=== PATIENT | female | born 1995 | race Caucasian/White ===

== ENCOUNTER 2020-03-09 23:58 | Emergency (ER) | payer OTHER ==
[~2020-03-09] VITALS: Ht 157.5 cm; Wt 90.7 kg
[2020-03-10] MEDS ORDERED: ULTRAM50 MG PO (01:02)
[2020-03-10 01:19] VITALS: BP 116/66
--- OUTSIDE RECORDS SUMMARY | 2020-03-10 02:04 | XMS REPORT | Summary of Care ---
Author Author [facility] Organization [facility] Address Unknown Phone Unavailable Encounter BEV Quigley(JONN) [id number] Date(s): 01/05/17 - 01/05/17 [facility] [address] [place] [address]- [phone] Discharge Diagnosis: Depression Discharge Disposition: Home or Self Care Attending Physician: Henrique Cerda MD Vital Signs 1 2 3 Most recent to oldest [Reference Range]: 165.1 cm (01/05/17 4:23 PM) Height 98.2 DegF (01/05/17 10:31 PM) 98.1 DegF (01/05/17 8:35 PM) 98.0 DegF (01/05/17 4:23 PM) Temperature Oral [96.4-99.1 DegF] 102/80 mmHg (01/05/17 10:31 PM) 100/62 mmHg (01/05/17 8:35 PM) 124/79 mmHg (01/05/17 4:23 PM) Blood Pressure [90-140/60-90 mmHg] 20 BRMIN (01/05/17 10:31 PM) 20 BRMIN (01/05/17 8:35 PM) 22 BRMIN *HI* (01/05/17 4:23 PM) Respiratory Rate [14-20 BRMIN] 85 bpm (01/05/17 10:31 PM) 81 bpm (01/05/17 8:35 PM) 68 bpm (01/05/17 4:23 PM) Peripheral Pulse Rate [60-100 bpm] 59.091 kg (01/05/17 4:23 PM) Weight 21.68 m2 (01/05/17 4:23 PM) Body Mass Index Problem List Condition Effective Dates Status Health Status Informan t Bipolar disorder, Active unspecified(Confirme d) Allergies, Adverse Reactions, Alerts Substance Reaction Severity Status morphine Active Medications Tylenol 650 mg, Route: PO, Drug form: TAB, ONCE, Dosing Weight 59.091, kg, Priority: STA T, Start date: 01/05/17 21:22:00 CDT, Stop date: 01/05/17 21:22:00 CDT Start Date: 01/05/17 Stop Date: 01/05/17 Status: Completed Results ELECTROLYTES Most recent to 1 oldest [Reference Range]: Sodium Lvl [135-145 142 mEq/L mEq/L] (01/05/17 5:11 PM) Potassium Lvl 4.0 mEq/L [3.5-5.1 mEq/L] (01/05/17 5:11 PM) Chloride Lvl [95-109 108 mEq/L mEq/L] (01/05/17 5:11 PM) CO2 [24-32 mEq/L] 26 mEq/L (01/05/17 5:11 PM) AGAP [10.0-20.0 12.0 mEq/L mEq/L] (01/05/17 5:11 PM) CHEM PANEL Most recent to 1 oldest [Reference Range]: Creatinine Lvl 0.79 mg/dL [0.50-1.40 mg/dL] (01/05/17 5:11 PM) eGFR 109 mL/min/1.73m2 1 *NA* (01/05/17 5:11 PM) BUN [7-22 mg/dL] 11 mg/dL (01/05/17 5:11 PM) B/C Ratio [6-25] 14 (01/05/17 5:11 PM) Glucose Lvl [70-99 91 mg/dL mg/dL] (01/05/17 5:11 PM) Total Protein 7.6 g/dL [6.4-8.4 g/dL] (01/05/17 5:11 PM) Albumin Lvl [3.5-5.0 3.9 g/dL g/dL] (01/05/17 5:11 PM) Globulin [2.7-4.2 3.7 g/dL g/dL] (01/05/17 5:11 PM) A/G Ratio [0.7-1.6] 1.1 (01/05/17 5:11 PM) Calcium Lvl 9.2 mg/dL [8.5-10.5 mg/dL] (01/05/17 5:11 PM) ALT [0-65 unit/L] 23 unit/L (01/05/17 5:11 PM) AST [0-37 unit/L] 15 unit/L (01/05/17 5:11 PM) Alk Phos [39-136 79 unit/L unit/L] (01/05/17 5:11 PM) Bili Total [0.2-1.3 0.5 mg/dL mg/dL] (01/05/17 5:11 PM) Lipase Lvl [73-393 162 unit/L unit/L] (01/05/17 5:11 PM) 1Result Comment: The eGFR is calculated using the CKD-EPI formula. In most young, healthy individuals the eGFR will be >90 mL/min/1.73m2. The eGFR declines with age. An eGFR of 60-89 may be normal in some populations, particularly the elderly, for whom the CKD-EPI formula has not been extensively validated. Use of the eGFR is not recommended in the following populations: Individuals with unstable creatinine concentrations, including patients and those with serious co-morbid conditions. Patients with extremes in muscle mass or diet. The data above are obtained from the National Kidney Disease Education Program ( NKDEP) which additionally recommends that when the eGFR is used in patients with extremes of body mass index for purposes of drug dosing, the eGFR should be mul tiplied by the estimated BMI. CARDIAC ENZYMES Most recent to 1 oldest [Reference Range]: Total CK [12-191 52 unit/L unit/L] (01/05/17 5:11 PM) CK MB [0.5-3.6 0.6 ng/mL ng/mL] (01/05/17 5:11 PM) CK MB Index 1.2 [0.0-2.5] (01/05/17 5:11 PM) Troponin-I <0.02 ng/mL [0.00-0.40 ng/mL] (01/05/17 5:11 PM) DRUG SCREEN Most recent to 1 oldest [Reference Range]: U Amph Scr Negative [Negative] *NA* (01/05/17 6:04 PM) U Johana Scr Negative [Negative] *NA* (01/05/17 6:04 PM) U Benzodia Scr Negative [Negative] *NA* (01/05/17 6:04 PM) U Cocaine Scr Negative [Negative] *NA* (01/05/17 6:04 PM) U Opiate Scr Negative [Negative] *NA* (01/05/17 6:04 PM) U Phencyc Scr Negative [Negative] *NA* (01/05/17 6:04 PM) U Cannab Scr Positive [Negative] *ABN* (01/05/17 6:04 PM) UDS Note See Note (01/05/17 6:04 PM) TOXICOLOGY Most recent to 1 oldest [Reference Range]: Acetaminoph Lvl <2 ug/ml [10-20 ug/ml] *LOW* (01/05/17 5:11 PM) Salicylate Lvl <1.7 mg/dL [0.0-30.0 mg/dL] (01/05/17 5:11 PM) Etoh (%) <.003 % *NA* (01/05/17 5:11 PM) Ethanol Lvl <3 mg/dL *NA* (01/05/17 5:11 PM) ENDOCRINOLOGY Most recent to 1 oldest [Reference Range]: hCG Tot <1 mIU/mL *NA* (01/05/17 5:11 PM) HEMATOLOGY Most recent to 1 oldest [Reference Range]: WBC [3.7-10.4 K/CMM] 5.0 K/CMM (01/05/17 5:11 PM) RBC [4.20-5.40 4.62 M/CMM M/CMM] (01/05/17 5:11 PM) Hgb [12.0-16.0 g/dL] 12.8 g/dL (01/05/17 5:11 PM) Hct [36.0-48.0 %] 39.5 % (01/05/17 5:11 PM) MCV [80.0-98.0 fL] 85.6 fL (01/05/17 5:11 PM) MCH [27.0-31.0 pg] 27.7 pg (01/05/17 5:11 PM) MCHC [32.0-36.0 32.4 g/dL g/dL] (01/05/17 5:11 PM) RDW [11.5-14.5 %] 15.0 % *HI* (01/05/17 5:11 PM) Platelet [133-450 186 K/CMM K/CMM] (01/05/17 5:11 PM) MPV [7.4-10.4 fL] 9.9 fL (01/05/17 5:11 PM) Segs [45.0-75.0 %] 67.0 % (01/05/17 5:11 PM) Lymphocytes 23.5 % [20.0-40.0 %] (01/05/17 5:11 PM) Monocytes [2.0-12.0 7.4 % %] (01/05/17 5:11 PM) Eosinophils [0.0-4.0 1.7 % %] (01/05/17 5:11 PM) Basophils [0.0-1.0 0.4 % %] (01/05/17 5:11 PM) Segs-Bands # 3.3 K/CMM [1.5-8.1 K/CMM] (01/05/17 5:11 PM) Lymphocytes # 1.2 K/CMM [1.0-5.5 K/CMM] (01/05/17 5:11 PM) Monocytes # [0.0-0.8 0.4 K/CMM K/CMM] (01/05/17 5:11 PM) Eosinophils # 0.1 K/CMM [0.0-0.5 K/CMM] (01/05/17 5:11 PM) Immunizations No data available for this section Procedures No data available for this section Social History Social History Type Response Smoking Status Current some day smoker; Ex posure to Tobacco Smoke None; Cigarette Smoking Last 365 Days Yes; Reg Smoking Cessatio n Counseling Yes Assessment and Plan No data available for this section
--- OUTSIDE RECORDS SUMMARY | 2020-03-10 02:04 | XMS REPORT ---
Author Author Admin, Trista Sunflower Organization [facility] Address [address] [address] Phone Allergies, Adverse Reactions, Alerts Allergy Name Reaction Description Start Date Severity Status Pr ovider No Known Allergies Percy Sprague MD Conditions or Problems Problem Name Problem Code Onset Date Status Entry Date Provider Comment Standard Description Annotate PERSONALITY DISORDER, BORDERLINE Active 201 02/02/15 Pearl Sprague MD DEPRESSIVE DISORDER, MAJOR, RECURRENT EPISODE, MODERATE Active Pearl Sprague MD Major depressive dis order, recurrent episode, moderate degree PANIC DISORDER Active Pearl Sprague MD Panic disorder without agoraphobia PTSD Active Pearl Sprague MD Posttraumatic stress disorder Medication List Medication Instructions Start Date Stop Date Generic Name NDC Status Provider Patient Instruction ARIPIPRAZOLE 5 MG ORAL TABLET one By Mouth Every Morning ARIPIPRAZOLE 55296633002 Active Pearl Sprague MD Active SERTRALINE HCL 100 MG ORAL TABLET one By Mouth Every Day SERTRALINE HCL 13514555254 Active Pearl Sprague MD Active Vital Signs Date Name Value Unit Range Description blood pressure, diastolic 74 mm[Hg] BP chandler blood pressure, systolic 111 mm[Hg] BP sys pulse rate E&M 90 /min Heart rate weight E&M 178.60 [lb_av] Weight Measure d blood pressure, diastolic 86 mm[Hg] BP chandler blood pressure, systolic 119 mm[Hg] BP sys height E&M 62 [in_us] Bdy height pulse rate E&M 96 /min Heart rate weight E&M 178.60 [lb_av] Weight Measure d Diagnostic Results Date Name Value Unit Range Description Lab Report: CBC With Differential/Platel et, Comp. Metabolic Panel (14), ... - Hematology basophils as percent of blood leukocytes 0 % Not Estab. Lab Report: CBC With Differential/Platel et, Comp. Metabolic Panel (14), ... - Chemistry calcium, serum 9.4 mg/dL 8.7-10.2 Lab Report: CBC With Differential/Platel et, Comp. Metabolic Panel (14), ... - Hematology lymphocyte count, blood, automated 1.5 X10E3/UL 10*3/mm3 0.7-3.1 Lab Report: CBC With Differential/Platel et, Comp. Metabolic Panel (14), ... - Chemistry urea nitrogen, blood 9 mg/dL 6-20 Lab Report: CBC With Differential/Platel et, Comp. Metabolic Panel (14), ... - Hematology monocyte count, blood, automated 0.3 X10E3/UL 10*3/uL 0 .1-0.9 Lab Report: CBC With Differential/Platel et, Comp. Metabolic Panel (14), ... - Chemistry urea nitrogen/creatinine ratio, serum 11 9-23 immature granulocytes, percentage of total cells, bloo d 0 % Not Estab. Lab Report: CBC With Differential/Platel et, Comp. Metabolic Panel (14), ... - Genetics/fertility eGFR if 121 mL/min/1.73m2 >59 Lab Report: CBC With Differential/Platel et, Comp. Metabolic Panel (14), ... - Chemistry creatinine, serum 0.81 mg/dL 0.57-1.00 Lab Report: CBC With Differential/Platel et, Comp. Metabolic Panel (14), ... - Hematology mean corpuscular volume, RBC 85 fL 79-97 Lab Report: CBC With Differential/Platel et, Comp. Metabolic Panel (14), ... - Chemistry chloride, serum 102 mmol/L 96-106 Lab Report: CBC With Differential/Platel et, Comp. Metabolic Panel (14), ... - Hematology lymphocytes as percent of blood leukocytes 24 % Not Estab. Lab Report: CBC With Differential/Platel et, Comp. Metabolic Panel (14), ... - Chemistry triglyceride, serum, fasting 95 mg/dL 0-149 Lab Report: CBC With Differential/Platel et, Comp. Metabolic Panel (14), ... - Hematology erythrocyte (RBC) count 4.75 X10E6/UL 10*6/mm3 3.77-5.28 Lab Report: CBC With Differential/Platel et, Comp. Metabolic Panel (14), ... - Chemistry Estimated Glomerular Filtration Rate (calc) 105 mL/ min/1.73m2 >59 Lab Report: CBC With Differential/Platel et, Comp. Metabolic Panel (14), ... - Hematology platelet count 231 X10E3/UL 10*3/mm3 508-810 9934/11/15 red blood cell distribution width 13.6 % 12 .3-15.4 Lab Report: CBC With Differential/Platel et, Comp. Metabolic Panel (14), ... - Chemistry carbon dioxide, venous blood 22 mmol/L 18-29 protein, total, serum 7.0 g/dL 6.0-8.5 HDL cholesterol, serum 45 mg/dL >39 sodium, serum 138 mmol/L 134-144 Lab Report: CBC With Differential/Platel et, Comp. Metabolic Panel (14), ... - Hematology eosinophils as percent of blood leukocytes 5 % Not Estab. Lab Report: CBC With Differential/Platel et, Comp. Metabolic Panel (14), ... - Chemistry albumin/globulin ratio, serum 1.6 1.2-2. 2 alkaline phosphatase, serum 98 U/L 39-117 Absolute Neutrophils 4.1 X10E3/UL 10*3/uL 1.4-7.0 Lab Report: CBC With Differential/Platel et, Comp. Metabolic Panel (14), ... - Hematology basophil count, absolute 0.0 x10E3/uL 0.0-0.2 Lab Report: CBC With Differential/Platel et, Comp. Metabolic Panel (14), ... - Chemistry alanine aminotransferase (SGPT), serum 21 U/L 0-32 Lab Report: CBC With Differential/Platel et, Comp. Metabolic Panel (14), ... - Hematology Eosinophil Absolute Count 0.3 X10E3/UL 10*3/uL 0.0-0.4 Lab Report: CBC With Differential/Platel et, Comp. Metabolic Panel (14), ... - Chemistry LDL cholesterol, serum 98 mg/dL 0-99 Lab Report: CBC With Differential/Platel et, Comp. Metabolic Panel (14), ... - Hematology monocytes as percent of blood leukocytes 5 % Not Estab. mean corpuscular hemoglobin, RBC 28.4 pg 26. 6-33.0 Lab Report: CBC With Differential/Platel et, Comp. Metabolic Panel (14), ... - Chemistry cholesterol, serum 162 mg/dL 100-199 Lab Report: CBC With Differential/Platel et, Comp. Metabolic Panel (14), ... - Hematology mean corpuscular hemoglobin concentration, RBC 33.3 G/DL % 31.5-35.7 Lab Report: CBC With Differential/Platel et, Comp. Metabolic Panel (14), ... - Chemistry bilirubin, serum, total 0.3 mg/dL 0.0-1.2 Lab Report: CBC With Differential/Platel et, Comp. Metabolic Panel (14), ... - Hematology hemoglobin, blood 13.5 g/dL 11.1-15.9 neutrophils as percent of blood leukocytes 66 % Not Estab. leukocyte count, blood 6.3 X10E3/UL 10*3/mm3 3.4-10.8 hematocrit, blood 40.5 % 34.0-46.6 Lab Report: CBC With Differential/Platel et, Comp. Metabolic Panel (14), ... - Chemistry potassium, serum 4.7 mmol/L 3.5-5.2 blood glucose, random 87 mg/dL 65-99 globulin, serum 2.7 1.5-4.5 aspartate aminotransferase (SGOT), serum 18 U/L 0-40 albumin, serum 4.3 g/dL 3.5-5.5 very low density lipoproteins 19 mg/dL 5-40 Encounters Date Encounter Provider Code Facility 10:38:47 [employer] Est Patient Detailed - [id number] Pearl ramsay MD CPT-01613 [facility] Procedures Code Procedure Name Date Entry Date Standard Desc ription CPT-24259 Diagnostic evaluation with medical - 15621 05/28 15:41:57 CDT
--- OUTSIDE RECORDS SUMMARY | 2020-03-10 02:04 | XMS REPORT | Clinical Summary ---
Author Author [facility] Address Unknown Phone Unavailable Care Team Providers Care Digital Marketing Strategist Name Role Phone Pcp, No PCP Unavailable Allergies No Known Allergies Medications End Date Status Medication Sig Dispensed Refills Start Date Active hydrOXYzine (ATARAX) 25 Take 25 mg by 0 MG tablet mouth every night as needed for Anxiety. Active HYDROcodone-acetaminophen 1-2 tabs PO Q 40 tablet 0 (NORCO) 5-325 mg per 6 hours PRN 0 tablet pain. 09/11/2020 Active triamcinolone (KENALOG) Apply 45 g 0 0.1 % topical cream topically 2 0 (two) times daily as needed. 09/06/2019 Discontinued sertraline (ZOLOFT) 50 MG Take 1 tablet 60 tablet 11 tablet (50 mg total) 9 by mouth 2 (two) times daily. 09/09/2019 Discontinued triamcinolone (KENALOG) Apply 45 g 2 0.1 % topical cream topically 2 9 (two) times daily as needed. 06/01/2019 lamoTRIgine 25 mg (42) Take by 0 01 -100 mg (7) DsPk mouth. 9 06/25/2019 hydrOXYzine (ATARAX) 25 Take 1 tablet 30 tablet 2 MG tablet (25 mg total) 9 by mouth 3 (three) times daily as needed for Itching for up to 10 days. 09/06/2019 Discontinued lamoTRIgine (LAMICTAL) Take 100 mg 0 100 MG tablet by mouth daily. 08/09/2019 ibuprofen (ADVIL,MOTRIN) Take 1 tablet 40 tablet 2 600 MG tablet (600 mg 0 total) by mouth every 6 (six) hours as needed for up to 10 days. 08/09/2019 furosemide (LASIX) 20 MG Take 1 tablet 10 tablet 0 tablet (20 mg total) 0 by mouth daily for 10 days. 11/05/2019 lamoTRIgine (LAMICTAL) Take 1 tablet 30 tablet 1 0 100 MG tablet (100 mg 0 total) by mouth daily for 60 days. 11/05/2019 sertraline (ZOLOFT) 100 Take 1 tablet 30 tablet 1 MG tablet (100 mg 0 total) by mouth daily for 60 days. 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 08/10/2019 Supervision of high risk in third trimester 12/2408/10/2019 Encounters Care Team Description Date Type Specialty Case, ROMAN Pratt MD referral Genetics and Psych 11/30/2019 Telephone Obstetrics and Gyne cology Sydnie Templeton INTEGRITY MANAGER iud apt 10/12/2019 Telephone Obstetrics and Gyne cology Ynes Sanches MD 09/09/2019 Refill Obstetrics and Gyne cology Ynes Sanches MD care following deliv eliseo (Primary Dx); Encounter for IUD insertion 09/06/2019 Obstetrics and Gyne cology Chrystal Christensen NP care following deliv eliseo (Primary Dx) 08/10/2019 Obstetrics and Gyne cology Alannah Robertson MD DELIVERY, SECTION 07/27/2019 Surgery Obstetrics Jovana Jasso MD 07/27/2019 Anesthesia Obstetrics Event Olga William PIEDAD Cormier 07/25/2019 Anesthesia Obstetrics and Gyne cology Event Ynes Sanches MD Markos, Ferenc, MD 07/25/2019 Hospital Obstetrics - Encounter 07/30/2019 Ynes Sanches MD GA: 36w1d 07/20/2019 Routine Obstetrics and Gyne cology Ynes Sanches MD GA: 35w0d 07/12/2019 Routine Obstetrics and Gyne cology Ynes Sanches MD 07/09/2019 Hospital Obstetrics Encounter Ynes Sanches MD GA: 32w6d 06/27/2019 Routine Obstetrics and Gyne cology Sydnie Templeton INTEGRITY MANAGER Abdominal Cramping 06/21/2019 Telephone Obstetrics and Gyne cology Santa Mendoza RN Medication Management 06/15/2019 Telephone Obstetrics and Gyne cology Ynes Sanches MD GA: 30w5d 06/12/2019 Routine Obstetrics and Gyne cology 06/12/2019 Travel Ynes Sanches MD GA: 28w5d 05/29/2019 Routine Obstetrics and Gyne cology 05/29/2019 Travel Windy Perry, MAURICE lamictal rx 05/12/2019 Telephone Obstetrics and Gyne cology Windy Perry, MAURICE possible kidney stone 05/12/2019 Telephone Obstetrics and Gyne cology Ynes Sanches MD GA: 24w5d 05/01/2019 Routine Obstetrics and Gyne cology 05/01/2019 Ynes Olivia MD GA: 20w5d 04/03/2019 Routine Obstetrics and Gyne cology 04/03/2019 Santa Snyder RN Incoming Call (MFM referral) 03/22/2019 Telephone Obstetrics and Gyne cology Santa Mendoza RN MFM referral 03/21/2019 Telephone Obstetrics and Gyne cology Chrystal Christensen NP GA: 18w5d 03/20/2019 Routine Obstetrics and Gyne cology Case, ROMAN Pratt Dental release 03/13/2019 Telephone Obstetrics and Gyne cology after 03/10/2019 Immunizations Name Dates Previously Given Next Due Influenza Four-QIV PF 05/29/2019 3YR+ MMR 07/30/2019 Tdap 06/12/2019 Social History Date Tobacco Use Types Packs/Day Years Used Former Smoker Smokeless Tobacco: Never Used Alcohol Use Drinks/Week oz/Week Comments No Alcohol Habits Answer Date Recorded How often do you have a drink containing alcohol? Never 01/10/2019 How many drinks containing alcohol do you have on No t asked a typical day when you are drinking? How often do you have six or more drinks on one Not asked occasion? Sex Assigned at Date Recorded Female 05/01/2019 8:55 AM CDT Industry Job Start Date Occupation Not on file Not on file Not on file Travel End Travel History Travel Start No recent travel history available. Last Filed Vital Signs Time Taken Vital Sign Reading 09/06/2019 1:40 PM LAB SCIENTIST Blood Pressure 102/60 07/30/2019 7:00 AM LAB SCIENTIST Pulse 81 07/30/2019 7:00 AM LAB SCIENTIST Temperature 36.5 C (97.7 F) 07/30/2019 7:00 AM LAB SCIENTIST Respiratory Rate 17 07/29/2019 7:20 PM LAB SCIENTIST Oxygen Saturation 97% - Inhaled Oxygen - Concentration 09/06/2019 1:40 PM LAB SCIENTIST Weight 81.2 kg (179 lb) 09/06/2019 1:40 PM LAB SCIENTIST Height 157.5 cm (5' 2") 09/06/2019 1:40 PM LAB SCIENTIST Body Mass Index 32.74 Plan of Treatment Health Maintenance Due Date Last Done Comments LIPID PANEL 2017 INFLUENZA VACCINE (#1) 2020 05/29/2019 CERVICAL CANCER SCREENING 02/07/2022 02/07/2019 PAP ONLY (Age 21-65) Procedures Comments Procedure Name Priority Date/Time Associated Diag nosis CBC W/PLT COUNT & AUTO Routine 07/28/2019 DIFFERENTIAL 3:54 AM LAB SCIENTIST CBC W/PLT COUNT & AUTO Routine 07/28/2019 DIFFERENTIAL 3:54 AM LAB SCIENTIST TISSUE EXAM AP Routine 07/27/2019 4:22 PM LAB SCIENTIST DELIVERY, SECTION 07/27/2019 37 weeks ge station of 3:15 PM LAB SCIENTIST GA AN EPIDURAL CATH - NO Routine 07/27/2019 CHARGE 11:48 AM LAB SCIENTIST TRANSFUSION SERVICE 07/26/2019 REPORT - SCAN 5:53 PM LAB SCIENTIST ABORH, MANUAL Routine 07/25/2019 5:55 PM LAB SCIENTIST CBC W/PLT COUNT & AUTO Routine 07/25/2019 DIFFERENTIAL 4:26 PM LAB SCIENTIST ABORH, MANUAL STAT 07/25/2019 4:26 PM LAB SCIENTIST TYPE AND SCREEN, STAT 07/25/2019 AUTOMATED 4:26 PM LAB SCIENTIST HIV-1 ANTIGEN WITH Routine 07/25/2019 HIV-1/2 ANTIBODY 4:26 PM LAB SCIENTIST RPR Routine 07/25/2019 4:26 PM LAB SCIENTIST HEPATITIS B SURFACE Routine 07/25/2019 ANTIGEN 4:26 PM LAB SCIENTIST CBC W/PLT COUNT & AUTO Routine 07/25/2019 DIFFERENTIAL 4:26 PM LAB SCIENTIST STREP GP B CULT/DNA PROBE AP Routine 07/12/2019 Supe rvision of high risk 2:09 PM LAB SCIENTIST in third trimester URINE CULTURE, ROUTINE AP Routine 07/12/2019 Supervi néstor of high risk 2:03 PM LAB SCIENTIST in third trimester POCT URINALYSIS DIPSTICK Routine 07/12/2019 Super vision of high risk 1:54 PM LAB SCIENTIST in third trimester URINALYSIS W/ REFLEX Routine 07/09/2019 URINE CULTURE 5:55 AM LAB SCIENTIST GEST DIABETES 1-HR SCREEN AP Routine 05/29/2019 Supe rvision of high risk 10:11 AM LAB SCIENTIST in third trimester RPR (DX) W/REFL TITER AND Routine 05/29/2019 Supe rvision of high risk CONFIRMATORY TESTING 10:11 AM LAB SCIENTIST in thi rd trimester HIV-1 ANTIGEN WITH Routine 05/29/2019 Supervision of high risk HIV-1/2 ANTIBODY 10:11 AM LAB SCIENTIST in third trimester CBC W/PLT COUNT & AUTO Routine 05/29/2019 Supervi néstor of high risk DIFFERENTIAL 10:11 AM LAB SCIENTIST in third trimester POCT URINALYSIS DIPSTICK Routine 05/29/2019 Kidne y stone complicating 9:19 AM LAB SCIENTIST , second trimester URINE CULTURE, ROUTINE AP Routine 05/29/2019 Kidney stone complicating 9:18 AM LAB SCIENTIST , second trimester after 03/10/2019 Results * CBC with platelet count + automated diff (07/28/2019 3:54 AM LAB SCIENTIST) Only the most recent of 2 results within the time period is included. WBC 9.8 4.0 - 10.0 K/L [facility] RBC 3.23 (L) 4.00 - 5.00 M/L [facility] Hemoglobin 9.1 (L) 12.0 - 15.5 GM/DL [facility] Hematocrit 28.3 (L) 36.0 - 46.0 % [facility] MCV 87.6 82.0 - 99.0 fL [facility] MCH 28.2 27.0 - 33.0 pg [facility] MCHC 32.2 32.0 - 36.0 GM/DL [facility] RDW 13.1 12.0 - 15.0 % [facility] Platelets 148 (L) 150 - 430 K/CU MM [facility] MPV 11.3Comment: MPV-Approximately 6.0 - 11.5 fL [facility] 20% positive bias due to method change. nRBC 0 0 - 0 /100 WBC [facility] % Neutros 79 % [facility] % Lymphs 13 % [facility] % Monos 7 % [facility] % Eos 1 % [facility] % Baso 0 % [facility] # Neutros 7.74 1.80 - 8.00 K/L [facility] # Lymphs 1.25 (L) 1.48 - 4.50 K/L [facility] # Monos 0.73 0.00 - 1.30 K/L [facility] # Eos 0.06 0.00 - 0.50 K/L [facility] # Baso 0.01 0.00 - 0.20 K/L [facility] Immature 1 (H) 0 - 0 % [facility] Granulocytes-Relative Specimen Blood Performing Organization Address City/State/Zipcode Ph one Number [facility] [address] [place], [place] [phone] * Tissue Exam: Placenta-Gross and Micro (07/27/2019 4:22 PM LAB SCIENTIST) Case Report [facility] Report Case: [id number] Authorizing Provider:Alannah Robertson MD Collected: 07/27/2019 1622 Ordering [facility] Women's ServicesReceived: 020 0818 Pathologist: Efra Carrillo MD Specimen:Placenta DIAGNOSIS PLACENTA, 37 WEEKS GESTATION: [facility] UMBILICAL CORD - - TRIVASCULAR UMBILICAL CORD - NEGATIVE FOR ACUTE INFLAMMATION MEMBRANES - - NEGATIVE FOR ACUTE INFLAMMATION PLACENTAL DISC - - PLACENTAL WEIGHT: 280 GMS (SMALL) (MEAN EXPECTED WEIGHT - 478 GMS - FOCAL INFARCT INVOLVING LESS THAN 5% OF VILLOUS VOLUME - THIRD TRIMESTER VILLOUS MORPHOLOGY Note: Placental weight reference: Diagnostic Pathology:Placenta. Cosme Cruz E. DePaepe, M. Section IV. 1-2. Elsevier. 2015. Signing Pathologist Direct Phone Line: [phone] CPT Code(s) 97529 [facility] CLINICAL HISTORY 24-year-old 1, para 1, [facility] 0, gestation 37 weeks. This is on an female with birthweight of 2210 gm. scores of 6 and 9. Procedure: C/section SPECIMEN SOURCE Placenta [facility] GROSS DESCRIPTION The instrument, paperwork, [facility] container and cassettes all read [id number]. Received in formalin labeled with the patient's name (Naik), and medical record number. Specimen A: Received in formalin labeled as "placenta" is a 280 gm, 21.0 x 14.5 x 2.0 cm placenta with an attached 26.9 x 1.5 x 1.5 cm three-vessel umbilical cord with a paracentral insertion. Also present are paige-calvo opaque membranes with a marginal insertion. The surface is paige-blue and smooth. The vessels branch in the usual manner. Maternal surface is intact with well-formed cotyledons. Sectioning reveals an area of infarct measuring 2.0 x 1.8 x 0.8 cm. No other parenchymal lesions are noted. Code sections: A1, membrane roll; A2, section of umbilical cord; A3 and A4, sections of maternal surface at area of infarct; A4. Additional sections of maternal surface; A5, section of surface. JF/pl Specimen Tissue Performing Organization Address City/State/[facility] Ph one Number [facility] [address] [place], [place] [phone] * ANESTHESIA EPIDURAL BLOCK (07/27/2019 11:48 AM LAB SCIENTIST) Narrative Performed At Karson Hollingsworth MD 07/27/2019 11 :49 AM Epidural Block Patient location during procedure: OB Start time: 07/27/2019 11:27 AM End time: 07/27/2019 11:34 AM Procedure Indication: procedure for lynne n, at surgeon's request and primary anesthetic Staffing Anesthesiologist: Karson Hollingsworth MD Performed: personally Preanesthetic Checklist Completed: patient identified, pre-op e valuation, timeout performed, IV checked, risks and benefits discussed, monitors and equipment checked, anesthesia consent given, prep site dry prior to draping and maximum sterile barriers were used: cap, mask, sterile gown, sterile gloves, and large sterile sheet Prep Prep: Betadine Procedures: sterile gloves, surgical ma sk, surgical hat, sterile technique and prep and sterile drape applied Epidural Patient position: sitting Patient monitoring: HR, SpO2 and BP Approach: midline landmark technique and landmark techniq ueNo pictures available Location: lumbar Level:3-4 Injection technique: BAYLEE air Epidural Needle Needle type: Tuohy Needle gauge: 17 G Needle length: 9 cm Insertion Depth: Other (6.5 cm) Catheter Type: Epidural Catheter type: end hole (Arrow) Catheter size: 19 G Catheter at Skin Depth: Catheter at skin depth: 12 cm Assessment Sensory Region: thoracic Sensory level: 10 Test dose result: negative Amount: 3 mL, lidocaine 1.5% with epine phrine 1:200,000injection not painful, no injection resistance, no pa resthesia, no cerebrospinal fluid, no intravascular injection, no epidural blood return and no intrathecal medication injection patient tolerated the procedure well an d patient had no immediate complications Additional Notes One attempt. Atraumatic. Procedure Note Karson Hollingsworth MD - 07/27/2019 11:48 AM LAB SCIENTIST Epidural Block Patient location during procedure: OB Start time: 07/27/2019 11:27 AM End time: 07/27/2019 11:34 AM Procedure Indication: procedure for pain, at surgeon's request and primary anesthetic Staffing Anesthesiologist: Karson Hollingsworth MD Performed: personally Preanesthetic Checklist Completed: patient identified, pre-op evaluation, timeout performed, IV checked, risks and benefits discussed, monitors and equipment checked, anesthesia consent given, prep site dry prior to draping and maximum sterile barriers were used: cap, mask, sterile gown, sterile gloves, and large sterile sheet Prep Prep: Betadine Procedures: sterile gloves, surgical mask, surgical hat, sterile technique and prep and sterile drape applied Epidural Patient position: sitting Patient monitoring: HR, SpO2 and BP Approach: midline landmark technique and landmark techniqueNo pictures available Location: lumbar Level: 3-4 Injection technique: BAYLEE air Epidural Needle Needle type: Tuohy Needle gauge: 17 G Needle length: 9 cm Insertion Depth: Other (6.5 cm) Catheter Type: Epidural Catheter type: end hole (Arrow) Catheter size: 19 G Catheter at Skin Depth: Catheter at skin depth: 12 cm Assessment Sensory Region: thoracic Sensory level: 10 Test dose result: negative Amount: 3 mL, lidocaine 1.5% with epinephrine 1:200,000injection not painful, no injection resistance, no paresthesia, no cerebrospinal fluid, no intravascular injection, no epidural blood return and no intrathecal medication injection patient tolerated the procedure well and patient had no immediate complications Additional Notes One attempt. Atraumatic. * TRANSFUSION SERVICE REPORT - SCAN (07/26/2019 5:53 PM LAB SCIENTIST) Narrative Performed At This result has an attachment that is n ot available. * ABORH, manual (07/25/2019 5:55 PM LAB SCIENTIST) Only the most recent of 2 results within the time period is included. [facility] POS [facility] ABO Grouping A [facility] Specimen Blood Performing Organization Address [facility], [facility] one Number [facility] [address] [place] [address] [facility] * Type and screen, automated (07/25/2019 4:26 PM LAB SCIENTIST) Ab Scrn NEGATIVE [facility] Specimen Blood Performing Organization Address [facility], [facility] one Number [facility] [address] [place] [address] [facility] * HIV-1 Antigen with HIV-1/2 Antibody (07/25/2019 4:26 PM LAB SCIENTIST) Only the most recent of 2 results within the time period is included. HIV-1 Antigen with HIV Nonreactive Nonreactive [facility] 1&2 Antibody Specimen Blood Performing Organization Address [facility], [facility] one [facility] [address] [place], [place] [phone] * RPR (07/25/2019 4:26 PM LAB SCIENTIST) RPR Nonreactive Nonreactive [facility] Specimen Blood Performing Organization Address [facility], [facility] one [facility] [address] [place], [place] [phone] * Hepatitis B surface antigen (07/25/2019 4:26 PM LAB SCIENTIST) HBsAg Screen Nonreactive Nonreactive [facility] Specimen Blood Performing Organization Address [facility], [facility] one [facility] [address] [place], [place] [phone] * STREP GP B CULT/DNA PROBE (07/12/2019 2:09 PM LAB SCIENTIST) Strep Gp B ANJU Negative Negative [facility] 1 Comment: Centers for Disease Control and Prevention (CDC) and [place] [employer] of Obstetricians and Gynecologists (ACOG) guidelines for prevention of group B streptococcal (GBS) disease specify co-collection of a vaginal and rectal swab specimen to maximize sensitivity of GBS detection. Per the CDC and ACOG, swabbing both the lower vagina and rectum substantially increases the yield of detection compared with sampling the vagina alone. Penicillin G, ampicillin, or cefazolin are indicated for intrapartum prophylaxis of GBS colonization. Reflex susceptibility testing should be performed prior to use of clindamycin only on GBS isolates from penicillin-allergic women who are considered a high risk for anaphylaxis. Treatment with vancomycin without additional testing is warranted if resistance to clindamycin is noted. Specimen Vaginal Swab Narrative Performed At Performed at:[address] [place] [address] [facility] [address] [place] [id number] Employee Communications Specialist: Vidal Mccann MD, Phone: [phone] Performing Organization Address [facility] 1 * URINE CULTURE, ROUTINE (07/12/2019 2:03 PM LAB SCIENTIST) Only the most recent of 2 results within the time period is included. Urine Culture, Routine Final report [facility] 1 Result 1 Comment [facility] 1 Comment: Mixed urogenital christianne Less than 10,000 colonies/mL Specimen Urine Narrative Performed At [facility]formed at:[facility] [address] [place] [id number] Employee Communications Specialist: Vidal Mccann MD, Phone: [phone] Performing Organization Address [facility] one [facility] 1 * POCT urinalysis dipstick (07/12/2019 1:54 PM LAB SCIENTIST) Only the most recent of 2 results within the time period is included. Glucose Urine, POC Negative Negative Bilirubin Urine, POC Negative Negative Ketones Urine, POC Negative Negative Specific [place] Urine, 1.025 SG Ratio 1.005 SG Ratio , 1.010 SG POC Ratio, 1.015 SG Ratio, 1.020 SG Ratio, 1.025 SG Ratio, 1.030 SG Ratio Blood Urine, POC Moderate (A) Negative pH Urine, POC 7.0 pH units 5.0 pH units, 5.5 p H units, 6.0 pH units, 6.5 pH units, 7.0 pH units, 7.5 pH units, 8.0 pH units Protein Urine, POC 30 mg/dl (A) Negative Urobilinogen Urine, POC 0.2 mg/dL 0.2 mg/dL, 1 m g/dL Nitrite Urine, POC Negative Negative Leukocyte Esterase Urine, Moderate (A) Negative POC Specimen * Urinalysis w/Microscopic + Reflex to Culture (07/09/2019 5:55 AM LAB SCIENTIST) Color, UA Yellow [facility] Clarity, UA Clear [facility] Specific [place], UA 1.011 1.001 - 1.035 [facility] pH, UA 8.0 5.0 - 8.0 [facility] Protein, UA Negative Negative [facility] Glucose, UA Negative Negative [facility] Ketones, UA Negative Negative [facility] Bilirubin, UA Negative Negative [facility] Blood, UA Small (A) Negative [facility] Nitrite, UA Negative Negative [facility] Leukocytes, UA Trace (A) Negative [facility] Urobilinogen, UA <1.0 0.2 - 1.0 mg/dL [facility] RBC, UA 8 /HPF [facility] WBC, UA 6 /HPF [facility] Bacteria, UA Occasional [facility] Mucus Rare [facility] Squam Epithel, UA 4 /HPF [facility] Specimen Source [facility] Specimen Urine Performing Organization Address City/State/Zipcode Ph one Number [facility] [address] [place] [phone] * RPR (DX) W/REFL TITER AND CONFIRMATORY TESTING (05/29/2019 10:11 AM LAB SCIENTIST) RPR Non Reactive Non Reacti [facility] Specimen Narrative Performed At Performed at:[address] [place] [address] [facility] [address] [place], [place] [id number] Employee Communications Specialist: Vidal Mccann MD, Phone: [phone] Performing Organization Address City/State/Zipcode Ph one Number [facility] 1 * GEST DIABETES 1-HR Screen (05/29/2019 10:11 AM LAB SCIENTIST) Gestational Diabetes 77 65 - 139 mg/dL [facility] 1 Screen Comment: According to ADA, a glucose threshold of >139 mg/dL after 50-gram load identifies approximately 80% of women with gestational diabetes mellitus, while the sensitivity is further increased to approximately 90% by a threshold of >129 mg/dL. Specimen Blood - Other Narrative Performed At Performed at: - [facility] [place] [facility] [address] [id number] Employee Communications Specialist: Vidal Mccann MD, Phone: [phone] Performing Organization Address City/State/Zipcode Ph one Number [facility] 1 * CBC W/PLT Count & Auto Differential (05/29/2019 10:11 AM LAB SCIENTIST) WBC 8.4 3.4 - 10.8 x10E3/uL [facility] 1 RBC 3.54 (L) 3.77 - 5.28 x10E6/uL [facility] 1 Hemoglobin 10.7 (L) 11.1 - 15.9 g/dL [facility] 1 Hematocrit 31.7 (L) 34.0 - 46.6 % [facility] 1 MCV 90 79 - 97 fL [facility] 1 MCH 30.2 26.6 - 33.0 pg [facility] 1 MCHC 33.8 31.5 - 35.7 g/dL [facility] 1 RDW 13.3 12.3 - 15.4 % [facility] 1 Platelets 169 150 - 450 x10E3/uL [facility] 1 % Neutros 75 Not Estab. % [facility] 1 % Lymphs 12 Not Estab. % [facility] 1 % Monos 8 Not Estab. % [facility] 1 % Eos 3 Not Estab. % [facility] 1 % Baso 0 Not Estab. % [facility] 1 # Neutros 6.3 1.4 - 7.0 x10E3/uL [facility] 1 # Lymphs 1.0 0.7 - 3.1 x10E3/uL [facility] 1 # Monos 0.7 0.1 - 0.9 x10E3/uL [facility] 1 # Eos 0.2 0.0 - 0.4 x10E3/uL [facility] 1 Baso (Absolute) 0.0 0.0 - 0.2 x10E3/uL [facility] 1 % Immature Grans 2 Not Estab. % [facility] 1 # Immature Grans 0.1 0.0 - 0.1 x10E3/uL [facility] 1 Specimen Blood Narrative Performed At Performed at: - [facility] [address] [id number] Employee Communications Specialist: Vidal Mccann MD, Phone: [phone] Performing Organization Address City/State/Zipcode Ph one Number [facility] 1 after 03/10/2019 Insurance Payer Benefit Subscriber ID Type Phone Address Plan / Group CIGNA - MGD CARE CIGNA xxxxxxxxxxx HMO/POS HMO/POS/OP EN ACCESS MEDICAID - MEDICAID [place] MEDICAID xxxxxxxxx Medica id CARE COMM Contracted HEALTH CHOICE [id number] Advance Directives For more information, please contact: [facility] [address] [place] [address] Date Inactivated Comments Code Status Date Activated 07/30/2019 1:59 PM Full Code 07/25/2019 4:22 PM This code status was determined by: Patient 07/09/2019 9:03 AM Full Code 07/09/2019 6:28 AM This code status was determined by: Patient
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
--- OUTSIDE RECORDS SUMMARY | 2020-03-10 02:04 | XMS REPORT | Continuity of Care Document ---
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 fluid, no intravascular injection, no e pidural blood return and no intrathecal medication injectionpatient tolerated th e procedure well and patient had no immediate complicationsAdditional NotesOne a ttempt. Atraumatic. [facility] Test Item Value Reference Range Interpretation Comments RPR (test code = 69692-6) Nonreactive Nonreactive Lab Interpretation (test code = 24020-1) [facility] 11:47:00* Test Item Value Reference Range Interpretation Comments RPR SCREEN (BEAKER) (test code = 420) Nonreactive Nonreactive ABORH, emwccx6876-82-47 18:28:00* Test Item Value Reference Range Interpretation Comments Rh Factor (test code = 2589) POS ABO Grouping (test code = 2588) [facility] surface qebumbb3202-91-90 17:51:00* Test Item Value Reference Range Interpretation Comments HBsAg Screen (test code = 5195-3) Nonreactive Nonreactive Lab Interpretation (test code = 35997-4) Normal [facility] Antigen with HIV-1/2 Sueouosf8124-18-05 17:51:00* Test Item Value Reference Range Interpretation Comments HIV-1 Antigen with HIV 1&2 Antibody (test code = 31391-6) No nreactive Nonreactive Lab Interpretation (test code = 01166-9) Normal [facility] HospitalHEPAT[facility]IS B SURFACE WDFBKOT8955-53-51 17:51:00* Test Item Value Reference Range Interpretation Comments HEPATITIS B SURFACE ANTIGEN (2) (BEAKER) (test code = 2585) Nonreactive Nonreactive HIV-1 ANTIGEN WITH HIV-1/2 AFPXQDTA2507-58-18 17:51:00* Test Item Value Reference Range Interpretation Comments HIV-1 ANTIGEN WITH HIV 1\\T\\2 ANTIBODY (2) (BEAKER) ( st code = 2586) Nonreactive Nonreactive Type and screen, fpxpxowoo2828-82-34 17:48:00* Test Item Value Reference Range Interpretation Comments Ab Scrn (test code = 890-4) NEGATIVE [facility] W/PLT COUNT & AUTO EZGGGYLWEVZY9429-09-39 16:53:00* Test Item Value Reference Range Interpretation Comments WHITE BLOOD CELL COUNT (BEAKER) (test code = 775) 9.4 K/ L 4.0- 10.0 RED BLOOD CELL COUNT (BEAKER) (test code = 761) 3.72 M/ L 4.00-5 .00 L HEMOGLOBIN (BEAKER) (test code = 410) 10.5 GM/DL 12.0-15.5 L HEMATOCRIT (BEAKER) (test code = 411) 31.8 % 36.0-46.0 L MEAN CORPUSCULAR VOLUME (BEAKER) (test code = 753) 85.5 fL 82. 0-99.0 MEAN CORPUSCULAR HEMOGLOBIN (BEAKER) (test code = 751) 28.2 pg 27.0-33.0 MEAN CORPUSCULAR HEMOGLOBIN CONC (BEAKER) (test code = 752) 33.0 GM/DL 32.0-36.0 RED CELL DISTRIBUTION WIDTH (BEAKER) (test code = 412) 13.2 % 12.0-15.0 PLATELET COUNT (BEAKER) (test code = 756) 193 K/CU MM 150-430 MEAN PLATELET VOLUME (BEAKER) (test code = 754) 12.0 fL 6.0-11 .5 H MPV- Approximately 20% positive bias due to method change. NUCLEATED RED BLOOD CELLS (BEAKER) (test code = 413) 0 /100 WBC 0 -0 NEUTROPHILS RELATIVE PERCENT (BEAKER) (test code = 429) 80 % LYMPHOCYTES RELATIVE PERCENT (BEAKER) (test code = 430) 12 % MONOCYTES RELATIVE PERCENT (BEAKER) (test code = 431) 5 % EOSINOPHILS RELATIVE PERCENT (BEAKER) (test code = 432) 2 % BASOPHILS RELATIVE PERCENT (BEAKER) (test code = 437) 0 % NEUTROPHILS ABSOLUTE COUNT (BEAKER) (test code = 670) 7.54 K/ L 1.80-8.00 LYMPHOCYTES ABSOLUTE COUNT (BEAKER) (test code = 414) 1.10 K/ L 1.48-4.50 L MONOCYTES ABSOLUTE COUNT (BEAKER) (test code = 415) 0.46 K/ L 0. 00-1.30 EOSINOPHILS ABSOLUTE COUNT (BEAKER) (test code = 416) 0.23 K/ L 0.00-0.50 BASOPHILS ABSOLUTE COUNT (BEAKER) (test code = 417) 0.02 K/ L 0. 00-0.20 IMMATURE GRANULOCYTES-RELATIVE PERCENT (BEAKER) (test code = 2801) 1 % 0-0 H STREP GP B CULT/DNA [id number] 17:08:00* Test Item Value Reference Range Interpretation Comments Strep Gp B ANJU (test code = 7251130) Negative Negative Centers for Disease Control and Prevention (CDC) and [place] Congressof Obstetricians and Gynecologists (ACOG) guidelines for prevention ofperinatal group B streptococcal (GBS) disease specify co-collection ofa vaginal and rectal swab specimen to maximize sensitivity of GBSdetection. Per the CDC and ACOG, swabbing both the lower vagina andrectum substantially increases the yield of detection compared withsampling the vagina alone.Penicillin G, ampicillin, or cefazolin are indicated for intrapartumprophylaxis of GBS colonization. Reflex susceptibilitytesting should be performed prior to use of clindamycin only on GBSisolates from penicillin-allergic women who are considered a high riskfor anaphylaxis. Treatment with vancomycin without additional testingis warranted if resistance to clindamycin is noted. MARTHA (test code = MARTHA) Performed at: [address] [place] [address] [id number] Director: Vidal Mccann MD, Phone: [phone] [facility], [id number] 06:08:00* Test Item Value Reference Range Interpretation Comments Urine Culture, Routine (test code = 7196622) Final report Result 1 (test code = 7926351) Comment Mixed urogenital floraLess than 10,000 colonies/mL MARTHA (test code = MARTHA) Performed at: [address] [place] [address] [id number] Director: Vidal Mccann MD, Phone: [phone] [facility]PO[facility] urinalysis kbuebfjb4253-15-90 13:54:00* Test Item Value Reference Range Interpretation Comments Glucose Urine, POC (test code = 7204196) Negative Negative Bilirubin Urine, POC (test code = 0461230) Negative Negative Ketones Urine, POC (test code = 9110361) Negative Negative Specific [place] Urine, POC (test code = 0929822) 1.025 SG R atio 1.005 SG Ratio, 1.010 SG Ratio, 1.015 SG Ratio, 1.020 SG Ratio, 1.025 SG Ratio, 1.030 SG Ratio Blood Urine, POC (test code = 4596701) Moderate Negative A pH Urine, POC (test code = 5737772) 7.0 pH units 5.0 pH units, 5.5 pH units, 6.0 pH units, 6.5 pH units, 7.0 pH units, 7.5 pH units, 8.0 pH units Protein Urine, POC (test code = 6052707) 30 mg/dl Negative A Urobilinogen Urine, POC (test code = 1028811) 0.2 mg/dL 0.2 mg/d L, 1 mg/dL Nitrite Urine, POC (test code = 5890933) Negative Negative Leukocyte Esterase Urine, POC (test code = 6381050) Moderate Ne gative A Lab Interpretation (test code = 95704-6) Abnormal [facility] HospitalUrinalysis w/Microscopic + Reflex to Culture 2019-07-09 06:41:00* Test Item Value Reference Range Interpretation Comments Color, UA (test code = 5778-6) Yellow Clarity, UA (test code = 5767-9) Clear Specific [place], UA (test code = 5811-5) 1.011 1.001-1.035 pH, UA (test code = 5803-2) 8.0 5.0-8.0 Protein, UA (test code = 95927-8) Negative Negative Glucose, UA (test code = 365) Negative Negative Ketones, UA (test code = 2514-8) Negative Negative Bilirubin, UA (test code = 63059-4) Negative Negative Blood, UA (test code = 93456-5) Small Negative A Nitrite, UA (test code = 5802-4) Negative Negative Leukocytes, UA (test code = 5799-2) Trace Negative A Urobilinogen, UA (test code = 13847-2) <1.0 0.2-1 RBC, UA (test code = 67124-6) 8 /HPF WBC, UA (test code = 5821-4) 6 /HPF Bacteria, UA (test code = 78387-9) Occasional Mucus (test code = 8247-9) Rare Squam Epithel, UA (test code = 69859-5) 4 /HPF Specimen Source (test code = 2795) Lab Interpretation (test code = 82534-1) Abnormal [facility] W/ REFLEX URINE [id number] 06:41:00* Test Item Value Reference Range Interpretation Comments COLOR (BEAKER) (test code = 470) Yellow CLARITY (BEAKER) (test code = 469) Clear SPECIFIC GRAVITY UA (BEAKER) (test code = 468) 1.011 1.001-1 .035 PH UA (BEAKER) (test code = 467) 8.0 5.0-8.0 PROTEIN UA (BEAKER) (test code = 464) Negative Negative GLUCOSE UA (BEAKER) (test code = 365) Negative Negative KETONES UA (BEAKER) (test code = 371) Negative Negative BILIRUBIN UA (BEAKER) (test code = 462) Negative Negative BLOOD UA (BEAKER) (test code = 461) Small Negative A NITRITE UA (BEAKER) (test code = 465) Negative Negative LEUKOCYTE ESTERASE UA (BEAKER) (test code = 466) Trace Negat monae A UROBILINOGEN UA (BEAKER) (test code = 463) < mg/dL 0.2-1.0 RBC UA (BEAKER) (test code = 519) 8 /HPF WBC UA (BEAKER) (test code = 520) 6 /HPF BACTERIA (BEAKER) (test code = 517) Occasional MUCUS (BEAKER) (test code = 1574) Rare SQUAMOUS EPITHELIAL (BEAKER) (test code = 516) 4 /HPF SOURCE(BEAKER) (test code = 2795) CBC W/PLT Count & Auto Jningmpjfgcs5100-96-61 14:09:00* Test Item Value Reference Range Interpretation Comments WBC (test code = 0245593) 8.4 3.4- 10.8 x10E3/uL RBC (test code = 789-8) 3.54 3.77- 5.28 x10E6/uL L Hemoglobin (test code = ) 10.7 g/dL 11.1-15.9 L Hematocrit (test code = 9745234) 31.7 % 34-46.6 L MCV (test code = 6714920) 90 fL 79-97 MCH (test code = 6702463) 30.2 pg 26.6-33 MCHC (test code = 9565531) 33.8 g/dL 31.5-35.7 RDW (test code = ) 13.3 % 12.3-15.4 Platelets (test code = ) 169 150- 450 x10E3/uL % Neutros (test code = 9355441) 75 % Not Estab. % Lymphs (test code = ) 12 % Not Estab. % Monos (test code = ) 8 % Not Estab. % Eos (test code = ) 3 % Not Estab. % Baso (test code = ) 0 % Not Estab. # Neutros (test code = ) 6.3 1.4- 7.0 x10E3/uL # Lymphs (test code = ) 1.0 0.7- 3.1 x10E3/uL # Monos (test code = ) 0.7 0.1- 0.9 x10E3/uL # Eos (test code = ) 0.2 0.0- 0.4 x10E3/uL Baso (Absolute) (test code = ) 0.0 0.0- 0.2 x10E3/u L % Immature Grans (test code = ) 2 % Not Estab. # Immature Grans (test code = ) 0.1 0.0- 0.1 x10E3/ uL MARTHA (test code = MARTHA) Performed at: [address] [place] [address] [id number] Director: Vidal Mccann MD, Phone: [phone] Lab Interpretation (test code = 90187-6) Abnormal [facility] 1-HR Cexnzv7040-51-82 14:09:00* Test Item Value Reference Range Interpretation Comments Gestational Diabetes Screen (test code = 0818838) 77 mg/dL 65-1 39 According to ADA, a glucose threshold of >139 mg/dL after 50-gramload identifies approximately 80% of women with gestationaldiabetes mellitus, while the sensitivity is further increased toapproximately 90% by a threshold of >129 mg/dL. MARTHA (test code = MARTHA) Performed at: [address] [place] [address] [id number] Director: Vidal Mccann MD, Phone: [phone] [facility] (DX) W/REFL TITER AND CONFIRMATORY TESTING 2019-05-30 14:09:00* Test Item Value Reference Range Interpretation Comments RPR (test code = 8224879) Non Reactive Non Reacti MARTHA (test code = MARTHA) Performed at: [address] [place] [address] [id number] Director: Vidal Mccann MD, Phone: [phone] [facility] HospitalBLOOD BANK ABHWEKU0189-84-25 16:10:00Negative (12/10/18 11:10 AM)[facility] HermannCHEM MZODE9569-00-57 16:10:81739Dhpbnnqm SgnamannCHEM SSNYQ9059-04-75 16:10:006.9[facility] HermannCHEM YUGVS6206-70-10 16:10:008.7[facility] HermannCHEM TYCOD1600-41-09 16:10:0027[facility] HermannCHEM BPTDW8348-34-40 16:10:31344Xjtpbedf HermannCHEM GWWDA7248-00-26 16:10:003.9 [facility] HermannCHEM BSQYD1586-78-55 16:10:000.1[facility] HermannCHEM PANEL 2018-12-10 16:10:0084[facility] HermannCHEM ZXQYD0665-39-61 16:10:0025[facility] HermannCHEM EZJQR8429-15-66 16:10:0053[facility] HermannCHEM BNANU3393-42-14 16:10:003.4[facility] HermannCHEM TCZKD8461-90-40 16:10:92429Ypsqlzxj HermannCHEM FCPAJ6137-53-04 16:10:000.69[facility] HermannCHEM XGKAU3281-92-29 16:10:0014 [facility] HermannCHEM GLKWM2103-48-20 16:10:0069[facility] HermannCHEM PANEL 2018-12-10 16:10:00* Test Item Value Reference Range Interpretation Comments A/G Ratio (test code = A/G Ratio) 1.0 1 0.7-1.6 [facility] HermannCHEM WDODW5277-38-43 16:10:003.5[facility] HermannCHEM PANEL 2018-12-10 16:10:00* Test Item Value Reference Range Interpretation Comments B/C Ratio (test code = B/C Ratio) 20 1 6-25 [facility] HermannCHEM XINZK9786-17-08 16:10:0010.9[facility] HermannENDOCRINOLOGY 2018-12-10 16:10:87700Rqrtwtnc XondjaaJQZSTTIAQFLCC8796-66-28 16:10:00Positive *NA*(12/10/18 11:10 AM)[facility] MibchzcEQVKPNQFLN4096-70-56 16:10:0038.6[facility] UusuggiSSTUMOIHPP2185-53-57 16:10:0013.1[facility] UaqctpcMTGAHHEZXH3044-19-45 16:10:004.40[facility] BxtwnarRGSGEUDVYY9266-12-85 16:10:0087.9[facility] NGOGKGXQCV1213-36-75 16:10:00* Test Item Value Reference Range Interpretation Comments MCH (test code = MCH) 29.9 pg 27.0-31.0 [facility] NiuzbqbFLFBHDLREC5357-62-93 16:10:0013.2[facility] HermannHEMATOLOGY 2018-12-10 16:10:23855Asrdfqca NyikyyaVKXPUZKJLV8339-09-48 16:10:0034.0[facility] ScbkdtxJYIHKJAVHO5365-12-93 16:10:009.2[facility] MvsurovEBXROZEFVI8999-29-02 16:10:006.2[facility] EbrzchfWYCJMEFDLS7546-61-19 16:10:0011.3[facility] SIXGIDDVTH6080-84-88 16:10:0023.9[facility] PsmfaxpDJRQLGCCTH3806-26-03 16:10:00 26.8[facility] FkponbsIRTKZRLBLA5061-87-03 16:10:001.5[facility] HermannHEMATOLOGY 2018-12-10 16:10:001.7[facility] EioacaaWSGIREXTCF0507-86-81 16:10:000.7[facility] GpwpzuyYRGTDYFJCP7112-53-07 16:10:002.4[facility] IchxzreEEVXFSYMVW7718-60-47 16:10:0038.0[facility] HermannURINE AND IWBEW0789-18-52 16:10:001[facility] URINE AND QKCDC0026-25-20 16:10:00Negative (12/10/18 11:10 AM)[facility] URINE AND LHVQX1829-37-95 16:10:00Negative (12/10/18 11:10 AM)[facility] URINE AND QSHJX5938-81-29 16:10:00Negative (12/10/18 11:10 AM)[facility] URINE AND CXXYI0614-47-66 16:10:003[facility] HermannURINE AND VUSGC7863-17-51 16:10:00Negative *NA*(12/10/18 11:10 AM)[facility]annURINE AND ZHIOK6762-74-71 16:10:00* Test Item Value Reference Range Interpretation Comments UA Spec Grav (test code = UA Spec Grav) 1.017 1 [facility]annURINE AND LEWWA4728-27-51 16:10:00* Test Item Value Reference Range Interpretation Comments UA pH (test code = UA pH) 6.0 1 5.0-8.0 [facility]annUR[facility] AND OSDKS7388-17-14 16:10:00Slight *ABN*(12/10/18 11:10 AM) [facility]annUR[facility] AND OQMIU4962-99-69 16:10:00Light Yellow *NA*(12/10/18 11:10 AM)[facility] HermannDRUG GKOEOL8870-26-66 23:04:00Negative *NA*(01/05/17 6:04 PM)[facility] HermannDRUG BHYLFM1560-03-81 23:04:00Positive *ABN*(01/05/17 6:04 PM)[facility] HermannDRUG QFEYVB7610-92-99 23:04:00Negative *NA*(01/05/17 6:04 PM)[facility] HermannDR[facility] HTWKTV7685-11-67 23:04:00Negative *NA*(01/05/17 6:04 PM) [facility]annDR[facility] DVABNR3029-30-64 23:04:00Negative *NA*(01/05/17 6:04 PM) [facility]annDR[facility] WCREZO3369-98-26 23:04:00Negative *NA*(01/05/17 6:04 PM) [facility]annDR[facility] TKVWGM4630-82-36 23:04:00Negative *NA*(01/05/17 6:04 PM) [facility]annDR[facility] CAUYYO7932-86-88 23:04:00See Note (01/05/17 6:04 PM)[facility] HermannCARDIAC TGOOQXM4959-91-59 22:11:00<0.02[facility] HermannCARDIAC ENZYMES 2017-01-05 22:11:000.6[facility] HermannCARDIAC OKLQZVU9595-10-25 22:11:0052 [facility] HermannCARDIAC GOFPQCQ7062-36-80 22:11:001.2[facility] HermannCHEM PANEL 2017-01-05 22:11:30502Lflucjau HermannCHEM ZGHZK7435-12-86 22:11:000.5[facility] HermannCHEM TIQFX6825-48-27 22:11:0079[facility] HermannCHEM CAVVS8597-05-23 22:11:001.1[facility] HermannCHEM LZQFW5958-63-99 22:11:003.7[facility] HermannCHEM RHXFN7458-53-31 22:11:007.6[facility] HermannCHEM ETZCE1413-95-56 22:11:003.9 [facility] HermannCHEM JLPCN7184-62-04 22:11:0015[facility] HermannCHEM PANEL 2017-01-05 22:11:0023[facility] HermannCHEM WHICO2773-85-33 22:11:009.2[facility] HermannCHEM QLZOT5183-51-31 22:11:0014[facility] HermannCHEM WNTDV0341-08-78 22:11:000.79[facility] HermannCHEM ATJQC0878-43-23 22:11:0011[facility] HermannCHEM DMUVC5890-73-42 22:11:0091[facility] HermannCHEM ABAPY5230-90-94 22:11:0012.0 [facility] HermannCHEM MJJBK9153-18-22 22:11:0026[facility] HermannCHEM PANEL 2017-01-05 22:11:004.0[facility] HermannCHEM JFRKK6362-01-79 22:11:09400Upzjsemh HermannCHEM QBSUM3512-32-58 22:11:26259Fcinjikm HermannCHEM NMWPU9425-87-46 22:11:75173Yulpbhtd TsfaslaGMPGJHEVBYWQC3919-88-47 22:11:00<1[facility] PQPOYDPMYJ2495-71-50 22:11:004.62[facility] OoqzbtvWIGJLQGJFC5021-15-61 22:11:00 5.0[facility] WlrqbpeQMGSWKKIVM0061-44-08 22:11:00* Test Item Value Reference Range Interpretation Comments MCH (test code = MCH) 27.7 pg 27.0-31.0 [facility] LwhwvlhEQOXGKFMNO1860-65-31 22:11:0085.6[facility] HermannHEMATOLOGY 2017-01-05 22:11:0032.4[facility] LowuzquSSGINGLRMR3042-74-39 22:11:0012.8[facility] ExgxhzkKQCUDIUMIO9049-70-15 22:11:0039.5[facility] UidhcgkLRHSNWWQHK1469-15-37 22:11:37370Nozwuppo IohybmqKSQRASHGYX0966-97-43 22:11:0015.0[facility] NLLBBBPSKT6193-19-64 22:11:009.9[facility] MafpracEFBGNEAMPM5491-75-11 22:11:000.1 [facility] ReadinqCKYELFVXRV0060-76-76 22:11:003.3[facility] HermannHEMATOLOGY 2017-01-05 22:11:001.2[facility] DmyczlwJYZKUYVLEJ0804-68-70 22:11:001.7[facility] RefnrrbSLHIMSBVEB3341-18-13 22:11:000.4[facility] DmqzdgcFWPEHBPRVJ4475-23-33 22:11:007.4[facility] WdmhnzsAZIOUQRRXC2071-63-95 22:11:000.4[facility] NPLZSPZCJA1018-82-92 22:11:0023.5[facility] ZhpybldQODMMVQGFH5876-21-78 22:11:00 67.0[facility] HgehyztAOIYENUYHO6193-64-90 22:11:00<1.7[facility] HermannTOXICOLOGY 2017-01-05 22:11:00<0.003[facility] XasiavbUDYJSSJQXW7183-42-87 22:11:00<3[facility] UegurznWNZHVDXRDN1424-81-16 22:11:00<2[facility] Fish
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
--- NOTE | 2020-03-10 02:06 | Emergency Department Note ---
History of Present Illnes History of Present Illness Chief Complaint: Back Pain History of Present Illness This is a 25 year old female 3 days of mid and upper back pain. Diffuse. Worse with ROM such as bending over to tie shoes or pulling up pants. No numbness, weakness, tingling. Similar symptoms in past, usually resolves, but came to ED due to prolonged nature. Took one dose of APAP with no improvement. Episode in past lasting several days that improved and resolved with Tramadol. No abd pain. No worse/better with food. No CP, SOB, N/V, diaphoresis. Historian: Patient Arrival Mode: Car Laboratory Technologist Required: No Onset (how long ago): day(s) Location: Diffuse thoracic area equal left and right side Radiation: Reports non-radiation Severity: moderate Onset quality: sudden Duration (how long): day(s) Timing of current episode: constant Chronicity: new Context: Denies recent illness, Denies trauma/injury Relieving factors: rest Exacerbating factors: movement Associated symptoms: Denies confusion, Denies chest pain, Denies cough, Denies diaphoresis, Denies fever/chills, Denies headaches, Denies loss of appetite, Denies malaise, Denies nausea/vomiting, Denies rash, Denies seizure, Denies shortness of breath, Denies syncope, Denies weakness Past Medical/Family History Physician Review I have reviewed the patient's past medical and family history. Any updates have been documented here. Past Medical History Recent Fever: No Clinical Suspicion of Infectio: No New/Unexplained Change in Ment: No Past Medical History: Diabetes Other Medical History: EDS, Past Surgical History: Other Surgery: BORN WITH GASTROSPECIES Social History Smoking Cessation: Former smoker Alcohol Use: None Any Illegal Drug Use: No Physically hurt or threatened: No Other Any Pre-Existing Lines (PICC,: No Review of Systems Review of Systems Constitutional: Reports no symptoms EENTM: Reports no symptoms Cardiovascular: Reports no symptoms Respiratory: Reports no symptoms Gastrointestinal: Reports no symptoms Genitourinary: Reports no symptoms; Denies dysuria, Denies frequency, Denies hematuria, Denies pain Musculoskeletal: Reports as per HPI Neurological: Reports no symptoms; Denies numbness, Denies paresthesia, Denies seizure, Denies tingling, Denies tremors, Denies weakness Endocrine: Denies increased thirst, Denies increased urination Hematological/Lymphatic: Reports no symptoms Physical Exam Related Data Triage Vital Signs Vital Signs Date Time Temp Pulse Resp B/P (MAP) Pulse Ox O2 Delivery O2 Flow Rate FiO2 03/10/20 00:12 98.1 95 22 116/66 100 Room Air Physical Exam CONSTITUTIONAL Constitutional: Present well-developed, Present well-nourished HENT HENT: Present normocephalic, Present atraumatic, Present oropharynx clear/moist, Present nose normal HENT L/R: Present left ext ear normal, Present right ext ear normal EYES Eyes: Reports PERRL, Reports conjunctivae normal NECK Neck: Present ROM normal PULMONARY Pulmonary: Present effort normal, Present breath sounds normal CARDIOVASCULAR Cardiovascular: Present regular rhythm, Present heart sounds normal, Present capillary refill normal, Present normal rate GASTROINTESTINAL Abdominal: Present soft, Present nontender, Present bowel sounds normal GENITOURINARY SKIN Skin: Present warm, Present dry MUSCULOSKELETAL Musculoskeletal: Present other (Back: No midline tenderness or stepoffs. Tender over left lower thoracic a few cm below scapula.) NEUROLOGICAL Neurological: Present oriented x 3 PSYCHOLOGICAL Psychological: Present mood/affect normal Results Laboratory Laboratory UA: SG > 1.030, nit, shawn, protein, blood, glu, patricia, and ketones all negative Lab results reviewed: Yes Assessment & Plan Medical Decision Making MDM differential includes, but not limited to: fracture, HNP, sprain, strain, gallbladder, ACS, dissection, aneurysm. Discussed differential with patient who agreed no further workup needed. No trauma, neurologically intact, no polanco's sign, no CP in 25 year old. Similar symptoms in past treated with Tramadol. Assessment & Plan Final Impression: (1) Back pain Depart Disposition: HOME, SELF-CARE Last Vital Signs Date Time Temp Pulse Resp B/P (MAP) Pulse Ox O2 Delivery O2 Flow Rate FiO2 03/10/20 00:12 98.1 95 22 116/66 100 Room Air Home Meds Active Scripts Tramadol Hcl (ULTRAM) 50 Mg Tablet, 50 MG PO Q6H PRN for BREAKTHROUGH PAIN, #14 TAB Prov:NAYLA BARBOSA MD 03/10/20 NAYLA BARBOSA MD Mar 10, 2020 01:04
== END 2020-03-10 01:19 | disposition home or self-care (01) ==
LOC: FSED 03-10 01:02
DX: M54.6 Pain in thoracic spine (principal); E11.9 Type 2 diabetes mellitus without complications
CPT/HCPCS: 81003; 99282

== ENCOUNTER 2020-04-14 14:26 | Emergency (ER) | payer OTHER ==
[~2020-04-14] VITALS: Ht 157.5 cm; Wt 92.3 kg
[~2020-04-14 14:26] MED LIST: ULTRAM50 MG PO
--- NOTE | 2020-04-14 15:22 | Emergency Department Note ---
History of Present Illnes History of Present Illness Chief Complaint: Eye, Ear, Nose, Throat, Dental History of Present Illness This is a 25 year old female with 5 days of left sided neck pain and swelling. States gradually worsened until yesterday. Pain/swelling better today. No sore throat or pain with swallowing. No midline neck pain. Pain is localized around swelling. Has decreased appetite. Fever with Tmax 103.0. Fever interm ittent. Usually 101.0 when has fever. Taking APAP and NSAIDs for fever and pain which are working. No sick contacts. States has rash that started on chest and now on trunk (abd, back, chest) & bilateral arms. No rash below waist or on face/neck. Rash is not pruritic. No new medications, shampoo, lotion, soaps, detergents, or other products. No cough. No problems with smell or taste. No similar symptoms in past. Saw two online MD visits who were concerned about abscess as cause of left anterior neck swelling. Denies any other "gland" enlargment". Historian: Patient Arrival Mode: Car EMS Treatment ANCHOR OPERATOR: IV Additional Treatment ANCHOR OPERATOR: 0900 & 1000 tylenol and motrin Sugar Cane Planter Required: No Onset (how long ago): day(s) Radiation: Reports non-radiation Severity: moderate Onset quality: gradual Duration (how long): day(s) Timing of current episode: constant Progression: partially resolved Chronicity: new Context: Denies trauma/injury, Denies new medications, Denies non-compliance w/ medications Relieving factors: medication Exacerbating factors: other (touch) Associated symptoms: Reports fever/chills; Denies confusion, Denies chest pain, Denies cough, Denies diaphoresis, Denies headaches, Denies loss of appetite, Denies malaise, Denies nausea/vomiting, Denies rash, Denies seizure, Denies shortness of breath, Denies syncope, Denies weakness Treatments prior to arrival: NSAID, antipyretic Past Medical/Family History Physician Review I have reviewed the patient's past medical and family history. Any updates have been documented here. 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 Social History Smoking Cessation: Never Smoker Counseling Performed: No Alcohol Use: None Any Illegal Drug Use: No Physically hurt or threatened: No Other Any Pre-Existing Lines (PICC,: No Review of Systems Review of Systems Constitutional: Reports fever; Denies chills, Denies diaphoresis EENTM: Reports as per HPI Cardiovascular: Reports no symptoms Respiratory: Reports no symptoms Gastrointestinal: Reports no symptoms Genitourinary: Reports no symptoms Musculoskeletal: Reports no symptoms Integumentary: Reports as per HPI, Reports rash Neurological: Reports no symptoms Psychological: Reports no symptoms Endocrine: Denies increased thirst, Denies increased urination Hematological/Lymphatic: Denies easy bruising Review of other systems: All other systems negative Physical Exam Related Data Allergies: Coded Allergies: No Known Allergies (Unverified , 04/14/20) Triage Vital Signs Vital Signs Date Time Temp Pulse Resp B/P (MAP) Pulse Ox O2 Delivery O2 Flow Rate FiO2 04/14/20 14:40 97.9 99 18 133/74 98 Room Air Vital signs reviewed: Yes Physical Exam CONSTITUTIONAL Constitutional: Present well-developed, Present well-nourished, Present other (Patient sitting upright on side of bed. Pleasant with non-toxic apperance. Walks to bathroom without difficulty.) HENT HENT: Present normocephalic, Present atraumatic, Present oropharynx juan r/moist, Present oropharynx normal, Present nose normal, Present other (normal voice (no hot potato voice), No drooling (handles secretions)); Absent nasal discharge, Absent nasal congestion, Absent rhinorrhea, Absent oropharyngeal exudate, Absent tonsillar excudate, Absent erythema HENT L/R: Present left TM normal, Present right TM normal, Present left canal normal, Present right canal normal, Present left ext ear normal, Present right ext ear normal, Present other (No strawberry tongue) EYES Eyes: Reports PERRL, Reports conjunctivae normal, Reports lids normal; Denies left eye discharge, Denies right eye discharge NECK Neck: Present ROM normal, Present supple, Present cervical adenopathy (Anterior cervical lymphadenopathy with size mild right, large left. tender.), Present other ( no fluctuance, no masses, no erythemia. ); Absent thyromegaly, Absent tracheal deviation, Absent stridor PULMONARY Pulmonary: Present effort normal CARDIOVASCULAR Cardiovascular: Present regular rhythm GASTROINTESTINAL Abdominal: Present soft, Present nontender, Present other (No hepatospleenomeglia) GENITOURINARY SKIN Skin: Present rash MUSCULOSKELETAL Musculoskeletal: Present ROM normal, Present other (No axillary lymph nodes) NEUROLOGICAL Neurological: Present alert, Present oriented x 3 PSYCHOLOGICAL Psychological: Present mood/affect normal, Present behavior normal, Present thought content normal, Present judgement normal Results Laboratory Laboratory comments WBC 4.5. UPT negative. BMP negative. Strep negative. Imaging Imaging Comments History: Neck swelling Comparison studies: None Technique: Axial, coronal and sagittal images from the skull base to the thoracic inlet. Coronal and sagittal images reconstructed from the axial data. Dose modulation, iterative reconstruction, and/or weight based adjustment of the mA/kV was utilized to reduce the radiation dose to as low as reasonably achievable. Intravenous contrast: 100 cc of Omnipaque 300. Findings: Airway: Patent. Soft tissues/lymph nodes: Ill-defined matted hypodense and mildly enhancing left supra and to a lesser extent infrahyoid lymph nodes are associated with ill-defined inflammatory changes in the surrounding fat (series 2, images 14 through 29). The largest lymph node on the left measures 3 cm (series 301, image 40). Similar findings but to a lesser extent are seen on the right. The largest right jugulodigastric lymph node measures 1.5 cm (series 301, image 40) Vessels: Arteries and veins are patent. Glands (thyroid, parotid and submandibular): Normal in size and symmetric. No masses. Orbits: No abnormalities. Paranasal sinuses: Nonobstructing retention cysts in the maxillary sinuses. Otherwise clear. Temporal bones: No abnormalities. Skull base and facial bones: Intact. Cervical spine: No abnormalities. Reversal of the usual lordosis centered at C5 is probably positional. IMPRESSION: 1. Nonspecific bilateral supra and to a lesser extent infrahyoid cervical adenitis (left greater than right). 2. Otherwise, no significant abnormalities Signed by: Dr. Elias Ramírez M.D. on 04/14/2020 4:12 PM Dictated By: ELIAS RAMÍREZ MD, MD [id number] Transcribed By: REJI on 04/14/20 1612 COPY TO: NAYLA BARBOSA MD~ Assessment & Plan Medical Decision Making MDM Differential Dx includes, but is not limited to: epiglottitis (shots UTD), Retropharyngeal abscess or cellulitis, tonsillopharyngitis, parapharyngeal space abscess, lymph adenitis, deep space or subcutaneous, cancer, abscess, [place], lymphadenitis, mono, Rubella. Patient . Talked with patient about using Claritin instead of Benadryl. Spoke with patient about proper PPE and hand hygiene. Spoke especially about concern for Rubella given lymphadenopathy followed by rash. Although patient vaccinated, Immunity could have declined, especially given fact patient has not had titers checked or noa ter as adult. Assessment & Plan Final Impression: (1) Viral illness (2) Lymphadenitis Depart Disposition: HOME, SELF-CARE Last Vital Signs Date Time Temp Pulse Resp B/P (MAP) Pulse Ox O2 Delivery O2 Flow Rate FiO2 04/14/20 14:40 97.9 99 18 133/74 98 Room Air Home Meds Discontinued Scripts Tramadol Hcl (ULTRAM) 50 Mg Tablet, 50 MG PO Q6H PRN for BREAKTHROUGH PAIN, #14 TAB Prov:NAYLA BARBOSA MD 03/10/20 NAYLA BARBOSA MD Apr 14, 2020 15:22
[2020-04-14] MEDS ORDERED: SODIUM CHLORIDE 0.9% 50ML 50 ML ONE (15:30)
[2020-04-14] MEDS ORDERED: IOPAMIDOL 370 MG/ML 200 ML INFUS..BTL INJ ONE (15:31)
--- NOTE | 2020-04-14 16:16 | Diagnostic Imaging Report ---
History: Neck swelling Comparison studies: None Technique: Axial, coronal and sagittal images from the skull base to the thoracic inlet. Coronal and sagittal images reconstructed from the axial data. Dose modulation, iterative reconstruction, and/or weight based adjustment of the mA/kV was utilized to reduce the radiation dose to as low as reasonably achievable. Intravenous contrast: 100 cc of Omnipaque 300. Findings: Airway: Patent. Soft tissues/lymph nodes: Ill-defined matted hypodense and mildly enhancing left supra and to a lesser extent infrahyoid lymph nodes are associated with ill-defined inflammatory changes in the surrounding fat (series 2, images 14 through 29). The largest lymph node on the left measures 3 cm (series 301, image 40). Similar findings but to a lesser extent are seen on the right. The largest right jugulodigastric lymph node measures 1.5 cm (series 301, image 40) Vessels: Arteries and veins are patent. Glands (thyroid, parotid and submandibular): Normal in size and symmetric. No masses. Orbits: No abnormalities. Paranasal sinuses: Nonobstructing retention cysts in the maxillary sinuses. Otherwise clear. Temporal bones: No abnormalities. Skull base and facial bones: Intact. Cervical spine: No abnormalities. Reversal of the usual lordosis centered at C5 is probably positional. IMPRESSION: 1. Nonspecific bilateral supra and to a lesser extent infrahyoid cervical adenitis (left greater than right). 2. Otherwise, no significant abnormalities Signed by: Dr. Elias Ramírez M.D. on 04/14/2020 4:12 PM
[2020-04-14] MEDS ORDERED: DIPHENHYDRAMINE HCL 25 MG CAP ONE (16:23)
[2020-04-14] MEDS ORDERED: DIPHENHYDRAMINE HCL 25 MG CAP PO NR (16:30)
[2020-04-14 17:14] VITALS: BP 110/66
== END 2020-04-14 17:03 | disposition home or self-care (01) ==
LOC: FSED 15:10
DX: I88.9 Nonspecific lymphadenitis, unspecified (principal); B34.9 Viral infection, unspecified; F31.9 Bipolar disorder, unspecified; Q79.60 Ehlers-Danlos syndrome, unspecified
CPT/HCPCS: 70491; 80048; 81025; 83518; 85025; 99284; Q9967